=== PATIENT | male | born 1940 | race Hispanic/Latino ===

== ENCOUNTER 2016-09-16 06:51 | Inpatient (IN) | payer MEDICARE ==
--- NOTE | 2016-09-10 11:23 | Anesthesia Consultation ---
Anesthesia Consult and Med Hx - Airway Anesthetic Teeth Evaluation: Caps Mallampati Class: Class II Intubation Access Assessment: Probably Good - Pulmonary Exam CTA: Yes - Cardiac Exam Cardiac Exam: RRR (patient has heart murmur) - Pre-Operative Health Status ASA Pre-Surgery Classification: ASA3 Proposed Anesthetic Plan: Epidural, MAC Nerve Block: adductor (patient has had successful placement of epidural, but may be difficult) - Pulmonary Hx Smoking: No (DIP TOBACCO- STOPPED X 5 YRS) Hx Sleep Apnea: No (DINAH PRE SCREEN LOW RISK) - Cardiovascular System Hx Hypertension: No (high cholesterol) Hx Coronary Artery Disease: (pt has had cabbage; cardiac clearance on chart) Hx Heart Murmur: Yes (CAUSES NO PROBLEMS) - Central Nervous System Hx Neuromuscular Disorder: (R-TKR, R-hip, R-shoulder surgery; 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
--- NOTE | 2016-09-10 11:27 | Anesthesia Consultation ---
Anesthesia Consult and Med Hx - Airway Anesthetic Teeth Evaluation: Caps ROM Head & Neck: Adequate Mental/Hyoid Distance: Adequate Mallampati Class: Class II Intubation Access Assessment: Probably Good - Pulmonary Exam CTA: Yes - Cardiac Exam Cardiac Exam: RRR (patient has murmur;) - Pre-Operative Health Status ASA Pre-Surgery Classification: ASA3 Proposed Anesthetic Plan: Epidural (epidural with adductor block and sedation; patient has spinal stenosis - epidural may be difficult but had sucessful epidural with a preious surgery), MAC Nerve Block: adductor - Pulmonary Hx Smoking: No (DIP TOBACCO- STOPPED X 5 YRS) Hx Sleep Apnea: No (DINAH PRE SCREEN LOW RISK) - Cardiovascular System Hx Hypertension: No Hx Coronary Artery Disease: (CABG in past - cardiac clearance on chart) Hx Heart Murmur: Yes (CAUSES NO PROBLEMS) - Central Nervous System Hx Neuromuscular Disorder: (previous R) - Hematic Hx Anemia: Yes - Other Systems Hx Cancer: Yes (LYMPHOMA WITH CHEMO 2002)
[~2016-09-16 06:51] MED LIST: LACTATED RINGERS 1,000 ML IV SCH; NACL BACTERIOSTATIC INFILTRATI ONE; PEPCID IV NR; VANCOMYCIN/NS 1 GM/250 ML 250 ML IV NR; VERSED IV NR; ZOFRAN IV NR
[2016-09-16] MEDS ORDERED: DILAUDID ONE (07:06)
[2016-09-16] MEDS ORDERED: DIPRIVAN 10 MG/ML IV ONE (07:06)
[2016-09-16] MEDS ORDERED: DECADRON ONE (07:20)
[2016-09-16] MEDS ORDERED: MARCAINE-EPI 0.5%-1:200,000 INFILTRATI ONE ×3 (07:20→09:41)
[2016-09-16 07:25] LABS: Basophils % (Auto) 0.7 % (0.0-1.8); Eosinophils % (Auto) 2.2 % (0.0-4.3); Hematocrit 40.9 % (35.5-45.6); Hemoglobin 13.5 gm/dl (11.8-15.2); Mean Corpuscular HGB Conc 33 % (32-34); Mean Corpuscular Hemoglobin 29 pg (28-32); Mean Corpuscular Volume 88 fl (84-94); Platelet Count 105 K/mm3 (140-440); Red Blood Count 4.65 M/mm3 (3.65-5.03); Red Cell Distribution Width 14.1 % (13.2-15.2); White Blood Count 6.1 K/mm3 (4.5-11.0)
[2016-09-16] MEDS ORDERED: CLONIDINE 1,000 MCG/10 ML VIAL EP ONE (08:30)
[2016-09-16] MEDS ORDERED: NEOSPORIN GU IR ONE (09:02)
[2016-09-16] MEDS ORDERED: NACL 0.9% IR ONE ×2 (09:02)
[2016-09-16] MEDS ORDERED: SODIUM CHLORIDE FLUSH SYRINGE 10 ML IV PRN ×2 (09:03→11:13)
[2016-09-16] MEDS ORDERED: NACL 0.9% IV ONE (09:20)
[2016-09-16] MEDS ORDERED: TRANEXAMIC ACID IV ONE (09:20)
[2016-09-16] MEDS ORDERED: XYLOCAINE MPF 2% ONE ×2 (09:26→11:08)
[2016-09-16] MEDS ORDERED: NACL 0.9% 1000 ML 1,000 ML ONE (09:48)
[2016-09-16] MEDS ORDERED: NEO SYNEPHRINE/NS Syringe(OR USE) IV ONE (10:56)
--- NOTE | 2016-09-16 11:09 | Admit Criteria Form ---
Admission Criteria Documentation: AMBULATORY SURGERY EXCEPTION CRITERIA Ambulatory Surgery Exception Criteria ( Place 'X' for any and all applicable criteria): Surgery or procedure performed on ambulatory basis may require inpatient stay for[A] ANY ONE of the following(1)(2)(3)(4)(5)(6)(7)(8)(9): [X] I. A preoperative situation, condition, or finding that warrants inpatient stay as indicated by ANY ONE of the following: [] a) Inpatient care needed because of severity of a disease or condition rather than the surgery (eg, severe cardiac or respiratory disease, severe infection) (15) (16 ) (17) (18) [] b) Emergent procedure (eg, angioplasty for acute ischemia)(19) [] c) Complex surgical approach or situation as indicated by ANY ONE of the following(3): [] i) Open approach needed instead of usual endoscopic, transcatheter, or other less invasive procedure [] ii) Difficult approach because of previous operation [] iii) Airway monitoring required after open neck procedures(20)(21) [] iv) Large mass requiring unusually extensive dissection [] v) Additional complicating feature requiring inpatient care (eg, drain management)(22(23): [X] d) Major surgery in a pt with high anesthetic risk as indicated by ANY ONE of the following (2)(3)(5)(7)(8): [X] i) ASA risk class III or higher (severe systemic disease impairing function) [D] [] ii) Advanced age (eg, older than 85 years)(14)(24) [] iii) Symptomatic heart failure(25) [] iv) Symptomatic asthma or COPD(8)(21) [] v) Morbid obesity with hemodynamic or respiratory problems(20)( 21)(26)(27) [] vi) Obstructive sleep apnea(20)(21) [] vii) Former premature infants who are younger than 60 weeks [] viii) High risk for severe postoperative abnormalities (eg, severe postoperative hypocalcemia after parathyroidectomy for severe hyperparathyroidism)(27)( 28) [] ix) Unstable angina(25) [] e) Drug-related risk requiring inpatient stay as indicated by ANY ONE of the following(5)(10)(14)(32)(33) [] i) Procedure requires discontinuing drugs or other therapy (eg , antiarrhythmic medication, antiseizure medication), which necessitates inpatient observation or treatment.(18)(31) [] ii) Major surgery and high risk drug use as indicated by ANY ONE of the following: [] 1) Active abuse of cocaine or similar drug [] 2) Monoamine oxidase inhibitor use [] 3) Other drug identified as posing risk [] f) Inadequate outpatient care situation as indicated by ANY ONE of the following(5)(10)(14)(32)(33) [] i) Patient lives remote from medical facility and procedure has urgent complication potential, and temporary nearby residence cannot be arranged [] ii) Patient will have postprocedure incapacitation and inadequate assistance at home, or alternative level of care cannot be arranged. [] iii) Patient will have long general anesthesia or procedure side effect resolution time, and competent person to stay with patient on first postoperative night at home or alternative level of care cannot be arranged. []iv) Other inadequate outpatient situation that cannot be handled by other means [] II. A perioperative event, condition, or finding that warrants inpatient stay as indicated by ANY ONE of the following (1)(2)(3): [] a) Inadequate physiologic recovery: cardiovascular, respiratory, or hemodynamic status not normal or near preoperative baseline(18) [] b) Hemodynamic instability [] c) Patient not alert with near normal or baseline mental status [] d) Temperature not normal or as expected and not appropriate for outpatient treatment of condition [] e) Ambulatory or appropriate activity level status not yet achieved post procedure [E](34)(35)(36) [] f) Operative site not appropriate (eg, unexpected or excessive drainage or bleeding) [] g) Postoperative effects not resolved or adequately managed (eg, significant pain or vomiting not appropriate for outpatient or next level of care)(10)(12) [] h) Complicating features requiring inpatient care as indicated by ANY ONE of the following(37): [] i) Severe complications of procedure (eg, bowel injury, airway compromise, vascular injury,severe hemorrhage) [] ii) Extensive (eg, dissection far beyond usual scope of procedure ) or prolonged (eg, 120 minutes beyond usual) surgery needed requiring inpatient postoperative care [] iii) Conversion to an open or complex procedure that requires inpatient care (eg, open vs laparoscopic cholecystectomy, abdominal vs vaginal hysterectomy)(38) [] iv) Comorbid condition or test result identified during or post procedure that requires inpatient care (7) [] v) Malignant hyperthermia(30) [] vi) Other complicating feature requiring inpatient care(22)(23) Inpatient stay may be needed until ALL of the following are present (1)(2)(3)(4) (5)(6)(10)(14)(33)(40): []a) Physiologic recovery: cardiovascular, respiratory, and hemodynamic status normal or near preoperative baseline []b) Hemodynamic stability []c) Patient alert, with near normal or baseline mental status []d) Temperature appropriate: patient afebrile or temperature appropriate for outpt treatment of condition []e) Activity level appropriate: ambulatory or appropriate activity level post procedure []f) Operative site appropriate as indicated by ALL of the following: []i) Site dry or with expected drainage []ii) Any blood noted is as expected for procedure. []g) Postoperative effects resolved or managed as indicated by ALL of the following: []i) Pain management appropriate for outpatient (or next level of) care(10) []ii) Minimal nausea and vomiting: if present, successfully treated with oral medication(12) []iii) Headache, dizziness, or drowsiness (if present) are mild. []h) Voiding status acceptable as indicated by ANY ONE of the following: []i) Voiding spontaneously []ii) No voiding but instructions given for follow-up in 6 to 8 hours []iii) Urinary catheter in place, and instructions given for follow-up []i) Complicating features requiring inpatient care manageable at a lower level of care(37) []j) Comorbid conditions manageable at a lower level of care(37) The original [employer] content created by [employer] has been revised. The portions of the content which have been revised are identified through the use of italic text or in bold, and [facility] [employer] has neither reviewed nor approved the modified material. All other unmodified content is copyright [employer]. Please see references footnoted in the original [employer] edition 2016 Admission Criteria Met: Yes
[2016-09-16] MEDS ORDERED: AMBIEN PO PRN (11:13)
--- NOTE | 2016-09-16 12:23 | Post Anesthesia Evaluation ---
- Post Anesthesia Evaluation Patient Participated: Yes Airway Patent: Yes Stable Respiratory Function: Yes Nausea/Vomiting: No Temp > 96.8F: Yes Pain Manageable: Yes Adequeate Hydration: Yes Anesthesia Complications: No
[2016-09-16] MEDS: NACL 0.9% 1000 ML 1,000 ML IV SCH (16:15)
[2016-09-16] MEDS: DILAUDID IV PRN ×2 (16:15→22:29)
[2016-09-16] MEDS ORDERED: NON-FORMULARY (Ascorbic Acid [Vitamin C] 1,000 MG) PO SCH (17:00)
[2016-09-16] MEDS ORDERED: ALPHA LIPOIC ACID 600 MG PO SCH (17:00)
[2016-09-16] MEDS ORDERED: SIMVASTATIN PO SCH (17:00)
[2016-09-16] MEDS ORDERED: LACTOBACILLUS COMBINATION NO 8 PO SCH (17:00)
[2016-09-16] MEDS ORDERED: EZETIMIBE PO SCH (17:00)
[2016-09-16] MEDS ORDERED: HALFPRIN EC PO SCH (17:00)
[2016-09-16] MEDS ORDERED: XYLOCAINE TOPICAL 5% TP SCH (17:00)
[2016-09-16] MEDS ORDERED: VANCOMYCIN/NS 1 GM/250 ML 250 ML IV SCH ×2 (18:00→22:30)
--- NOTE | 2016-09-16 20:00 | Consultation ---
History of Present Illness - Reason for Consult Consult date: 09/16/16 medical management Requesting physician: DEB PITTMAN - History of Present Illness Patient had L TKA today.Doing well . No complaints Past History Past Medical History: hypertension, hyperlipidemia Medications and Allergies Allergies Allergy/AdvReac Type Severity Reaction Status Date / Time Penicillins Allergy Rash Verified 09/08/16 17:23 Home Medications Medication Instructions Recorded Confirmed Last Taken Type ALPRAZolam [Xanax TAB] 0.5 mg PO QHS 09/10/16 09/10/16 Unknown History Alpha Lipoic Acid 600 mg PO DAILY 09/10/16 09/16/16 09/14/16 09:00 History Ascorbic Acid [Vitamin C] 1,000 mg PO DAILY 09/10/16 09/16/16 09/14/16 09:00 History Aspirin [Adult Low Dose Aspirin EC] 81 mg PO DAILY 09/10/16 09/16/16 09/09/16 09 :00 History Celecoxib [celeBREX] 200 mg PO QDAY 09/10/16 09/16/16 09/16/16 06:00 History Cod Liver Oil 1 each PO DAILY 09/10/16 09/16/16 09/14/16 09:00 History Cyanocobalamin/Folic Acid [Vitamin 1 tab PO DAILY 09/10/16 09/16/16 09/14/16 09: 00 History A06-Dhesz Acid Tablet] Ezetimibe/Simvastatin (Nf) 1 each PO DAILY 09/10/16 09/16/16 09/15/16 21:00 History [Vytorin 10-40 mg (Nf)] Finasteride [Proscar] 5 mg PO DAILY 09/10/16 09/16/16 09/16/16 06:00 History Ginkgo Biloba 120 mg PO DAILY 09/10/16 09/16/16 09/09/16 06:00 History HYDROcodone/APAP 10-325 [[place] 1 each PO TID 09/10/16 09/16/16 09/15/16 09:00 History 10/325] Lactobacillus Combination No.8 1 each PO DAILY 09/10/16 09/16/16 09/14/16 09:00 History [Adult Probiotic] Lidocaine Topical 5% [Xylocaine 1 dose TP DAILY 09/10/16 09/16/16 09/14/16 09: 00 History Topical 5%] Mv-Mn/Iron/FA/Herbal Cmplx#190 1 each PO DAILY 09/10/16 09/16/16 09/14/16 09:00 History [Vitamin D3 Complete [place]] Niacin [Niaspan ER] 1,000 mg PO QHS 09/10/16 09/10/16 Unknown History [place]-3 Fatty Acids [Fish Oil] 1,000 mg PO DAILY 09/10/16 09/16/16 09/14/16 09: 00 History Omeprazole Magnesium [PriLOSEC Otc] 20 mg PO QDAY 09/10/16 09/16/16 09/15/16 12: 00 History Psyllium 500 mg PO DAILY 09/10/16 09/16/16 09/15/16 09:00 History Pumpkin Seed Extract/Soy Germ [Azo 1,000 mg PO QHS 09/10/16 09/10/16 Unknown History Bladder Control Capsule] Tamsulosin [Flomax] 0.4 mg PO QDAY 09/10/16 09/16/16 09/16/16 06:00 History Vitamin B Complex [B Complex] 1 tab PO DAILY 09/10/16 09/16/16 09/14/16 09:00 History Vitamin E 400 unit PO DAILY 09/10/16 09/10/16 Unknown History Gabapentin [Gabapentin] 300 mg PO BID 09/16/16 09/16/16 09/16/16 06:00 History Active Meds: Active Medications Alprazolam (Xanax) 0.5 mg PO QHS [facility] Ascorbic Acid (Vitamin C) 1,000 mg PO DAILY [facility] Aspirin (Aspirin) 325 mg PO QDAY [facility] Celecoxib (Celebrex) 200 mg PO QDAY [facility] Ezetimibe (Zetia) 10 mg PO QDAY [facility] Famotidine (Pepcid) 20 mg IV PREOP NR Stop: 09/16/16 23:59 Last Admin: 09/16/16 07:30 Dose: 20 mg Finasteride (Proscar) 5 mg PO DAILY [facility] Gabapentin (Neurontin) 300 mg PO BID [facility] Hydromorphone HCl (Dilaudid) 0.5 mg IV Q3H PRN PRN Reason: Pain , Severe (7-10) Last Admin: 09/16/16 16:15 Dose: 0.5 mg Lactated Ringer's (Lactated Ringers) 1,000 mls @ 100 mls/hr IV DIRECT ROBERTO Stop: 09/16/16 23:59 Last Admin: 09/16/16 07:29 Dose: 100 mls/hr Vancomycin HCl (Vancomycin/Ns 1 Gm/250 Ml) 250 mls @ 167 mls/hr IV PREOP NR PRN Reason: Protocol Stop: 09/16/16 23:59 Last Admin: 09/16/16 08:55 Dose: 167 mls/hr Sodium Chloride (Nacl 0.9% 1000 Ml) 1,000 mls @ 125 mls/hr IV DIRECT ROBERTO Last Admin: 09/16/16 16:15 Dose: 125 mls/hr Ketorolac Tromethamine (Toradol) 30 mg IV Q6H PRN PRN Reason: Pain, Moderate (4-6) Stop: 09/21/16 11:12 Lactobacillus Acidophilus (Lactinex) 1 each PO QDAY ROBERTO Lidocaine (Lidoderm 5%) 1 each TD QDAY ROBERTO Midazolam HCl (Versed) 2 mg IV PREOP NR Stop: 09/16/16 23:59 Last Admin: 09/16/16 07:45 Dose: 2 mg Ondansetron HCl (Zofran) 4 mg IV PREOP NR Stop: 09/16/16 23:00 Last Admin: 09/16/16 07:32 Dose: 4 mg Pantoprazole Sodium (Protonix) 20 mg PO QDAY ROBERTO Simvastatin (Zocor) 40 mg PO QHS ROBERTO Sodium Chloride (Sodium Chloride Flush Syringe 10 Ml) 10 ml IV PRN PRN PRN Reason: LINE FLUSH Sodium Chloride (Sodium Chloride Flush Syringe 10 Ml) 10 ml IV PRN PRN PRN Reason: LINE FLUSH Tamsulosin HCl (Flomax) 0.4 mg PO QDAY ROBERTO Zolpidem Tartrate (Ambien) 5 mg PO QHS PRN PRN Reason: Sleep Review of Systems All systems: negative Exam - Constitutional Vitals: Temp Pulse Resp BP Pulse Ox 98.6 F 52 L 18 110/62 99 09/16/16 16:00 09/16/16 16:00 09/16/16 16:00 09/16/16 16:00 09/16/16 16:00 General appearance: Present: no acute distress, well-nourished - EENT Eyes: Present: PERRL ENT: hearing intact, clear oral mucosa - Neck Neck: Present: supple, normal ROM - Respiratory Respiratory effort: normal Respiratory: bilateral: CTA - Cardiovascular Heart Sounds: Present: S1 & S2. Absent: rub, click - Extremities Extremities: pulses symmetrical, No edema Peripheral Pulses: within normal limits - Abdominal General gastrointestinal: Present: soft, non-tender, non-distended, normal bowel sounds Male genitourinary: Present: normal - Integumentary Integumentary: Present: clear, warm, dry - Musculoskeletal Musculoskeletal: gait normal, strength equal bilaterally - Psychiatric Psychiatric: appropriate mood/affect, intact judgment & insight - Neurologic Neurologic: CNII-XII intact, moves all extremities Results - Labs CBC & Chem 7: 09/16/16 07:10 09/16/16 07:10 Labs: Abnormal lab results 09/16/16 Range/Units 07:10 Plt Count 105 L (140-440) K/mm3 [place] % (Auto) 11.1 H (0.0-7.3) % Assessment and Plan - Patient Problems (1) GERD (gastroesophageal reflux disease) Current Visit: Yes Status: Acute Qualifiers: Esophagitis presence: without esophagitis Qualified Code(s): K21.9 - Gastro -esophageal reflux disease without esophagitis Plan to address problem: Cont omeprazole (2) HLD (hyperlipidemia) Current Visit: Yes Status: Chronic Plan to address problem: Cont niacin and vytorin (3) BPH (benign prostatic hyperplasia) Current Visit: Yes Status: Chronic Qualifiers: Prostatic enlargement morphology: non-nodular Lower urinary tract symptom presence: symptoms present Qualified Code(s): N40.1 - Benign prostatic hyperplasia with lower urinary tract symptoms Plan to address problem: Cont Flomax and finasteride (4) Hx of total knee arthroplasty Current Visit: Yes Status: Acute Qualifiers: Laterality: left Qualified Code(s): Z96.652 - Presence of left artificial knee joint Plan to address problem: PT to continue (5) DVT prophylaxis Current Visit: Yes Status: Acute Plan to address problem: on Asa 325 twice a day (6) Pain management Current Visit: Yes Status: Acute Plan to address problem: Dilaudid prn
[2016-09-16] MEDS ORDERED: FLOMAX PO SCH (22:00)
[2016-09-16] MEDS: FLOMAX PO SCH (22:31)
[2016-09-16] MEDS: ZOCOR PO SCH (22:32)
[2016-09-16] MEDS: NEURONTIN PO SCH (22:32)
[2016-09-16] MEDS: XANAX PO SCH (22:32)
--- NOTE | 2016-09-16 23:34 | Operative Report ---
PREOPERATIVE DIAGNOSIS: Left knee with severe degenerative joint disease. 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 PROCEDURE PERFORMED: Left total knee replacement utilizing [employer] with: 1. Size 5 noncemented femur. 2. Size 5 noncemented tibia. 3. 9 mm polyethylene insert. 4. Non-resurface patella. SURGEON: Oumar Allen M.D. [employer] PRESS OPERATOR: Brian Driver CSA. ANESTHESIA: Spinal epidural plus adductor block. ESTIMATED BLOOD LOSS: Minimal. COMPLICATIONS: None. DESCRIPTION OF PROCEDURE: [place] patient underwent successful anesthesia. Tranexamic acid and vancomycin were pre-administered. Lower extremity was meticulously prepped and draped in the usual fashion. Standard tourniquet was inflated. Standard midline incision utilizing median trivector arthrotomy was carried out. The retropatellar surface was relatively well preserved. Marked degeneration and collapse noted of the tibiofemoral compartments. Standard drill hole made in the distal femur with sequential suctioning and standard cuts made with a 6-degree valgus alignment, 8 mm distal femoral resection. Excellent cuts made on the femur, tibia exposed. The intramedullary rossy introduced and with again sequential suctioning, and 0 mm were taken of the low side medially. Excellent cuts made on the tibia, appropriate gaps balanced. Full range of motion and excellent stability with the size implants noted. Excellent quality bone. The wound was thoroughly irrigated. The implants placed after preparation. He had full range of motion, stable excellent tracking and excellent stability. Once again, the wound was irrigated. Arthrotomy reapproximated with Ethibond sutures followed by 0 and 2-0 Vicryl, subcutaneous tissue and Monocryl for the skin and sterile [place] dressing applied, taken to the recovery room in satisfactory condition having tolerated the procedure well. Tourniquet released prior to wound closure. No significant bleeding encountered. JOB# [id number] NATALIE/ERIN
[2016-09-17] MEDS ORDERED: COD LIVER OIL PO SCH (10:00)
[2016-09-17] MEDS ORDERED: FOLIC ACID PO SCH (10:00)
[2016-09-17] MEDS: LACTINEX PO SCH (10:00)
[2016-09-17] MEDS ORDERED: CYANOCOBALAMIN PO SCH (10:00)
[2016-09-17] MEDS: VITAMIN C PO SCH (10:00)
[2016-09-17] MEDS ORDERED: NON-FORMULARY (Omeprazole Magnesium [Prilosec Otc] 20 MG) PO SCH (10:00)
[2016-09-17] MEDS: LIDODERM 5% TD SCH (10:00)
[2016-09-17] MEDS: ZETIA PO SCH (10:00)
[2016-09-17] MEDS: PROTONIX PO SCH (10:00)
[2016-09-17] MEDS: PROSCAR PO SCH (10:00)
[2016-09-17] MEDS: NEURONTIN PO SCH ×2 (10:00→22:57)
[2016-09-17] MEDS: TORADOL IV PRN ×2 (11:20→22:58)
[2016-09-17] MEDS: ASPIRIN PO SCH (11:27)
--- NOTE | 2016-09-17 13:40 | Progress Note ---
Subjective Date of service: 09/17/16 Interval history: 1st POD after left knee arthroplasty Patient is in the bed, relatively comfortable. Pain is well controlled with pain meds. Ambulated with some help, had physical therapy. No anesthesia complications Objective - Constitutional Vitals: Vital Signs - 12hr 09/17/16 09/17/16 09/17/16 05:15 08:00 12:14 Temperature 97.8 F 98.7 F 98.5 F Pulse Rate [ 76 52 L 54 L Left] Respiratory 20 18 18 Rate Blood Pressure 80/38 80/41 90/44 [Left Arm] O2 Sat by Pulse 98 98 Oximetry - Labs CBC & Chem 7: 09/16/16 07:10 09/16/16 07:10
[2016-09-17] MEDS: NACL 0.9% 1000 ML 1,000 ML IV SCH (15:33)
--- NOTE | 2016-09-17 16:27 | Progress Note ---
Subjective Date of service: 09/17/16 Interval history: VSS/BP sl low NVI Dssg dry Calf supple Comfortable Cont PT/Med mgmt Notified Dr. Sanchez Objective Vital signs: Vital Signs - 12hr 09/17/16 09/17/16 09/17/16 05:15 08:00 10:00 Temperature 97.8 F 98.7 F Pulse Rate [ 76 52 L Left] Respiratory 20 18 Rate Blood Pressure 80/38 80/41 [Left Arm] O2 Sat by Pulse 98 98 98 Oximetry 09/17/16 09/17/16 12:14 15:45 Temperature 98.5 F 98.2 F Pulse Rate [ 54 L 44 L Left] Respiratory 18 18 Rate Blood Pressure 90/44 88/50 [Left Arm] O2 Sat by Pulse Oximetry - Labs CBC & BMP: 09/16/16 07:10 09/16/16 07:10
[2016-09-17] MEDS: ZOCOR PO SCH (22:55)
[2016-09-17] MEDS: XANAX PO SCH (22:56)
[2016-09-17] MEDS: FLOMAX PO SCH (22:56)
[2016-09-18] MEDS: NACL 0.9% 1000 ML 1,000 ML IV SCH (01:32)
[2016-09-18 08:35] VITALS: BP 93/45
[2016-09-18] MEDS: LACTINEX PO SCH (10:00)
[2016-09-18] MEDS: ZETIA PO SCH (10:00)
[2016-09-18] MEDS: VITAMIN C PO SCH (10:00)
[2016-09-18] MEDS: PROSCAR PO SCH (10:00)
[2016-09-18] MEDS: NEURONTIN PO SCH (10:00)
[2016-09-18] MEDS: LIDODERM 5% TD SCH (10:00)
[2016-09-18] MEDS: ASPIRIN PO SCH (10:00)
[2016-09-18] MEDS: PROTONIX PO SCH (10:00)
[2016-09-18] MEDS ORDERED: PERCOCET 5/325 PO PRN (10:45)
--- NOTE | 2016-09-18 13:20 | Progress Note ---
Assessment and Plan Assessment and plan: (1) GERD (gastroesophageal reflux disease) Current Visit: Yes Status: Acute Qualifiers: Esophagitis presence: without esophagitis Qualified Code(s): K21.9 - Gastro -esophageal reflux disease without esophagitis Plan to address problem: Cont omeprazole (2) HLD (hyperlipidemia) Current Visit: Yes Status: Chronic Plan to address problem: Cont niacin and vytorin (3) BPH (benign prostatic hyperplasia) Current Visit: Yes Status: Chronic Qualifiers: Prostatic enlargement morphology: non-nodular Lower urinary tract symptom presence: symptoms present Qualified Code(s): N40.1 - Benign prostatic hyperplasia with lower urinary tract symptoms Plan to address problem: Cont Flomax and finasteride (4) Hx of total knee arthroplasty Current Visit: Yes Status: Acute Qualifiers: Laterality: left Qualified Code(s): Z96.652 - Presence of left artificial knee joint Plan to address problem: PT to continue (5) DVT prophylaxis Current Visit: Yes Status: Acute Plan to address problem: on Asa 325 twice a day (6) Pain management Current Visit: Yes Status: Acute Plan to address problem: Dilaudid prn History Interval history: Patient seen and examined. Medical records and medication list reviewed. No acute event overnight noted by the RN. Patient denies any chest pain or difficulty breathing. Patient is tolerating diet. Discussed plan of care at bedside with patient. Hospitalist Physical - Physical exam Narrative exam: GENERAL: well-developed and well-nourished lying on bed appeared to be in no discomfort. HEENT: Normocephalic. Atraumatic. No conjunctival congestion or icterus. Patient has moist mucous membranes. NECK: Supple. Trachea midline. CHEST/LUNGS: Clear to auscultated bilaterally, breathing nonlabored. No wheezes crackles or rhonchi. HEART/CARDIOVASCULAR: Regular in rate and rhythm. S1 and S2 positive. ABDOMEN: Abdomen is soft, nontender. Patient has normal bowel sounds. SKIN: There is no rash. Warm and dry. NEURO: No focal motor deficit. Follows command. MUSCULOSKELETAL: No joint effusion or tenderness. EXTRIMITY: No edema, no cyanosis or clubbing. PSYCH: Cooperative. - Constitutional Vitals: Temp Pulse Resp BP Pulse Ox 97.9 F 45 L 16 93/45 98 09/18/16 08:00 09/18/16 08:00 09/18/16 08:00 09/18/16 08:00 09/18/16 08:00 General appearance: Present: no acute distress, well-nourished Results - Labs CBC & Chem 7: 09/16/16 07:10 09/16/16 07:10 Labs: Laboratory Last Values WBC 6.1 K/mm3 (4.5-11.0) 09/16/16 07:10 RBC 4.65 M/mm3 (3.65-5.03) 09/16/16 07:10 Hgb 13.5 gm/dl (11.8-15.2) 09/16/16 07:10 Hct 40.9 % (35.5-45.6) 09/16/16 07:10 MCV 88 fl (84-94) 09/16/16 07:10 MCH 29 pg (28-32) 09/16/16 07:10 MCHC 33 % (32-34) 09/16/16 07:10 RDW 14.1 % (13.2-15.2) 09/16/16 07:10 Plt Count 105 K/mm3 (140-440) L 09/16/16 07:10 Lymph % (Auto) 27.6 % (13.4-35.0) 09/16/16 07:10 [place] % (Auto) 11.1 % (0.0-7.3) H 09/16/16 07:10 Eos % (Auto) 2.2 % (0.0-4.3) 09/16/16 07:10 Baso % (Auto) 0.7 % (0.0-1.8) 09/16/16 07:10 Lymph # 1.7 K/mm3 (1.2-5.4) 09/16/16 07:10 [place] # 0.7 K/mm3 (0.0-0.8) 09/16/16 07:10 Eos # 0.1 K/mm3 (0.0-0.4) 09/16/16 07:10 Baso # 0.0 K/mm3 (0.0-0.1) 09/16/16 07:10 Seg Neutrophils % 58.4 % (40.0-70.0) 09/16/16 07:10 Seg Neutrophils # 3.6 K/mm3 (1.8-7.7) 09/16/16 07:10 Potassium 4.4 mmol/L (3.6-5.0) 09/16/16 07:10
--- NOTE | 2016-09-18 14:13 | Progress Note ---
Assessment and Plan - Patient Problems (1) GERD (gastroesophageal reflux disease) Current Visit: Yes Status: Acute Qualifiers: Esophagitis presence: without esophagitis Qualified Code(s): K21.9 - Gastro -esophageal reflux disease without esophagitis Plan to address problem: Cont omeprazole (2) HLD (hyperlipidemia) Current Visit: Yes Status: Chronic Plan to address problem: Cont niacin and vytorin (3) BPH (benign prostatic hyperplasia) Current Visit: Yes Status: Chronic Qualifiers: Prostatic enlargement morphology: non-nodular Lower urinary tract symptom presence: symptoms present Qualified Code(s): N40.1 - Benign prostatic hyperplasia with lower urinary tract symptoms Plan to address problem: Cont Flomax and finasteride (4) Hx of total knee arthroplasty Current Visit: Yes Status: Acute Qualifiers: Laterality: left Qualified Code(s): Z96.652 - Presence of left artificial knee joint Plan to address problem: PT to continue (5) DVT prophylaxis Current Visit: Yes Status: Acute Plan to address problem: on Asa 325 twice a day (6) Pain management Current Visit: Yes Status: Acute Plan to address problem: Dilaudid prn Subjective Date of service: 09/17/16 Principal diagnosis: S/p TKA Interval history: Late entry Doing well. Discharge held b/c of low BP Objective - Constitutional Vitals: Vital Signs - 12hr 09/18/16 09/18/16 06:22 08:00 Temperature 97.7 F 97.9 F Pulse Rate [ 42 L 45 L Left] Respiratory 20 16 Rate Blood Pressure 100/54 93/45 [Left Arm] O2 Sat by Pulse 98 Oximetry General appearance: Present: no acute distress, well-nourished - EENT Eyes: PERRL, EOM intact ENT: hearing intact, clear oral mucosa Ears: bilateral: normal - Neck Neck: supple, normal ROM - Respiratory Respiratory effort: normal Respiratory: bilateral: CTA - Breasts Breasts: normal - Cardiovascular Rhythm: regular Heart Sounds: Present: S1 & S2. Absent: gallop, rub Extremities: pulses intact, No edema, normal color, Full ROM - Gastrointestinal General gastrointestinal: Present: soft, non-tender, non-distended, normal bowel sounds - Genitourinary Male genitourinary: normal - Integumentary Integumentary: clear, warm, dry - Musculoskeletal Musculoskeletal: 1, strength equal bilaterally - Neurologic Neurologic: moves all extremities - Psychiatric Psychiatric: memory intact, appropriate mood/affect, intact judgment & insight - Labs CBC & Chem 7: 09/16/16 07:10 09/16/16 07:10
--- NOTE | 2016-09-18 14:16 | Discharge Summary ---
Providers - Providers Date of Admission: 09/16/16 06:51 Date of discharge: 09/18/16 Attending physician: JEFFREY HOLMAN 09/16/16 11:13 Consult to Case Management [CONS] Routine Services Needed at Discharge: Home Health Services Notified:: LAUNDRY AGENT Consult to Physician [CONS] Routine Consulting Provider: CHANTE TILLEY Reason For Exam: primary care Place consult to:: DR. TILLEY Notified:: DR. TILLEY Was contact made?: Yes If yes, spoke with:: DR. TILLEY Time called:: 14:05 Comment:: COMPLETED - TONEY 09/16/16 11:21 Physical Therapy Evaluation and Treat [CONS] Routine Comment: avoid flexion, add, int rotation of operative hip Reason For Exam: total knee Primary care physician: YOANNA OROURKE Hospitalization Procedures: S/p L TKA -did well post op Hospital course: Had low BP for few hours-corrected by IV fluids. Pain tolerable . Disposition: DC/TX HOME UNDER HOME HEALTH - Discharge Diagnoses (1) GERD (gastroesophageal reflux disease) Status: Acute Qualifiers: Esophagitis presence: without esophagitis Qualified Code(s): K21.9 - Gastro -esophageal reflux disease without esophagitis (2) HLD (hyperlipidemia) Status: Chronic (3) BPH (benign prostatic hyperplasia) Status: Chronic Qualifiers: Prostatic enlargement morphology: non-nodular Lower urinary tract symptom presence: symptoms present Qualified Code(s): N40.1 - Benign prostatic hyperplasia with lower urinary tract symptoms (4) Hx of total knee arthroplasty Status: Acute Qualifiers: Laterality: left Qualified Code(s): Z96.652 - Presence of left artificial knee joint (5) DVT prophylaxis Status: Acute (6) Pain management Status: Acute Core Measure Documentation - Palliative Care Palliative Care/ Comfort Measures: Not Applicable - Core Measures Any of the following diagnoses?: none Exam - Constitutional Vitals: Temp Pulse Resp BP Pulse Ox 97.9 F 45 L 16 93/45 98 09/18/16 08:00 09/18/16 08:00 09/18/16 08:00 09/18/16 08:00 09/18/16 08:00 General appearance: Present: no acute distress, well-nourished - EENT Eyes: Present: PERRL ENT: hearing intact, clear oral mucosa - Neck Neck: Present: supple, normal ROM - Respiratory Respiratory effort: normal Respiratory: bilateral: CTA - Cardiovascular Heart Sounds: Present: S1 & S2. Absent: rub, click - Extremities Extremities: pulses symmetrical, No edema Peripheral Pulses: within normal limits - Abdominal General gastrointestinal: Present: soft, non-tender, non-distended, normal bowel sounds Male genitourinary: Present: normal - Integumentary Integumentary: Present: clear, warm, dry - Musculoskeletal Musculoskeletal: gait normal, strength equal bilaterally - Psychiatric Psychiatric: appropriate mood/affect, intact judgment & insight - Neurologic Neurologic: CNII-XII intact, moves all extremities Plan Weight Bearing Status: Weight Bear as Tolerated Diet: low fat, low cholesterol, low salt Wound: keep clean and dry, remove dressing (When Home health comes)
[2016-09-18 14:40] LABS: Basophils % (Auto) 0.4 % (0.0-1.8); Eosinophils % (Auto) 1.6 % (0.0-4.3); Hemoglobin 11.1 gm/dl (11.8-15.2); Mean Corpuscular HGB Conc 34 % (32-34); Mean Corpuscular Hemoglobin 29 pg (28-32); Mean Corpuscular Volume 88 fl (84-94); Red Blood Count 3.76 M/mm3 (3.65-5.03); Red Cell Distribution Width 14.5 % (13.2-15.2); White Blood Count 9.4 K/mm3 (4.5-11.0)
[2016-09-18 14:55] LABS: BUN/Creatinine Ratio 18.33; Blood Urea Nitrogen 11 mg/dL (9-20); Calcium 9.2 mg/dL (8.4-10.2); Carbon Dioxide 26 mmol/L (22-30); Chloride 104.9 mmol/L (98-107); Glucose 113 mg/dL (75-100); Sodium 140 mmol/L (137-145)
[2016-09-18 15:10] LABS: Anion Gap 13 mmol/L
[2016-09-18 15:25] LABS: Platelet Count 81 K/mm3 (140-440)
== END 2016-09-18 16:04 | disposition home health service (06) | DRG 470 ==
LOC: 3A 06:51 → 2B-SURG 12:21
PROVIDERS: ADMIT Orthopaedic Surgery; ATTEND Internal Medicine
PROC: 0SRD0JZ Replacement of Left Knee Joint with Synthetic Substitute, Open Approach (ICD-10-PCS; principal; 2016-09-17)
DX: M17.12 Unilateral primary osteoarthritis, left knee (principal); K21.9 Gastro-esophageal reflux disease without esophagitis; I25.10 Atherosclerotic heart disease of native coronary artery without angina pectoris; G89.29 Other chronic pain; G62.9 Polyneuropathy, unspecified; N40.1 Benign prostatic hyperplasia with lower urinary tract symptoms; E78.5 Hyperlipidemia, unspecified; D64.9 Anemia, unspecified; Z88.0 Allergy status to penicillin; Z95.1 Presence of aortocoronary bypass graft; Z92.21 Personal history of antineoplastic chemotherapy; Z85.72 Personal history of non-Hodgkin lymphomas; Z79.82 Long term (current) use of aspirin; Z96.641 Presence of right artificial hip joint
CPT/HCPCS: 36415; 62324; 64450; 80048; 84132; 85025; 88305; 94760; A4217; C1776; G8978-GP; G8979-GP; J0735; J1100; J1170; J1885; J2250; J2370; J2405; J2704; J3370; J7030; J7120

== ENCOUNTER 2016-12-29 13:23 | Outpatient (CLI) | payer MEDICARE ==
--- NOTE | 2016-12-30 10:16 | Magnetic Resonance Report ---
MRI BRAIN WITHOUT CONTRAST INDICATION: Loss of balance. History of cancer. COMPARISON: 08/16/2015 FINDINGS: Noncontrast multiplanar and multisequence MRI of the brain again demonstrates an approximately 1.3 cm right caudate head cavernous malformation with popcorn-like heterogeneous central signal and stable hypointense hemosiderin ring as on axial series 7, image 17. An adjacent 4 mm right subinsular lacunar infarct also again seen on the same image. No acute infarct, hemorrhage, mass effect or midline shift. Normal ventricles and stable, age-appropriate, mildly enlarged sulci. Normal major intracranial vascular flow voids. Normal posterior fossa with symmetric seventh and eighth nerve complexes. Preserved basilar cisterns. Few small pontine lacunar infarcts again noted. Mild rightward nasal septal deviation and approximately 3 mm rightward nasal septal spur. Mild ethmoid sinusitis. Clear remainder imaged paranasal sinuses and mastoid air cells. Bilateral cataract surgery. Normal midline structures without evidence of Chiari malformation. CONCLUSION: No acute intracranial MRI abnormality with few stable findings, including benign right caudate cavernous hemangioma, amongst others, as described. Thank you for the opportunity to participate in this patient's care.
== END 2016-12-29 13:24 | disposition home or self-care (01) ==
LOC: SPVIMAG 13:23
PROVIDERS: ATTEND Psychiatry & Neurology Neurology
DX: R26.89 Other abnormalities of gait and mobility (principal); I72.9 Aneurysm of unspecified site; J34.2 Deviated nasal septum; J32.2 Chronic ethmoidal sinusitis; Z98.41 Cataract extraction status, right eye; Z85.9 Personal history of malignant neoplasm, unspecified; Z98.42 Cataract extraction status, left eye
CPT/HCPCS: 70551

== ENCOUNTER 2017-01-26 08:23 | Outpatient (CLI) | payer MEDICARE ==
--- NOTE | 2017-01-26 13:15 | Cat Scan Report ---
CT NECK WITHOUT AND WITH CONTRAST: 01/26/17 08:23:00 CLINICAL: Globus sensation. History of non-Hodgkin's lymphoma. COMPARISON: 09/10/10 TECHNIQUE: Volumetric acquisition and 1.25 mm axial scan reconstructions without contrast and after the uneventful intravenous injection of 100-cc Omnipaque 350. Consent was obtained prior to the administration of the IV contrast. Sagittal and coronal reformats were performed. FINDINGS: A 4 mm cyst as developed at the root of the tongue on the left. Otherwise normal mucosal structures of the nasopharynx, oropharynx, hypopharynx and larynx. No lymphadenopathy of the neck. Normal salivary glands. The parapharyngeal spaces are normal. A previously identified left thyroid nodule has increased in size and now measures 2.5 x 1.9 x 2.6 cm compared to 1.1 x 0.8 cm on the last exam. The nodule is hypodense with a well-defined wall and a 5 mm mural nodule at the inferior wall. The nodule measures 44 Hounsfield units precontrast and 46 Hounsfield units post contrast. The mural nodule measures 92 Hounsfield units precontrast and 117 Hounsfield units post contrast. The left thyroid lobe is enlarged by the presence of the single nodule in the right lobe is small with no nodule. Vascular structures are normal. Degenerative changes in the spine and moderately large anterior osteophytes from C3-4 through C5-6. The largest osteophyte is at C4-5. The upper lung mccracken are clear. IMPRESSION: 1. A 4 mm probably benign cyst at the root of the tongue on the left. 2. 2.5 cm cystic left thyroid nodule which has enlarged since the previous exam. It has a partially calcified mural nodule in the wall. Recommend further evaluation with thyroid ultrasound. 3. Degenerative cervical spondylosis with large anterior osteophytes which may impair swallowing or produce an unatural sensation with the swallowing of a food bolus.
== END 2017-01-26 08:24 | disposition home or self-care (01) ==
LOC: SPVIMAG 08:23
PROVIDERS: ATTEND Otolaryngology Sleep Medicine
DX: E04.1 Nontoxic single thyroid nodule (principal); F45.8 Other somatoform disorders; K14.8 Other diseases of tongue; E04.9 Nontoxic goiter, unspecified; M47.812 Spondylosis without myelopathy or radiculopathy, cervical region; M25.78 Osteophyte, vertebrae; Z85.72 Personal history of non-Hodgkin lymphomas
CPT/HCPCS: 70492; 82962; Q9967

== ENCOUNTER 2018-06-28 10:54 | Outpatient (CLI) | payer MEDICARE ==
--- NOTE | 2018-06-28 14:08 | Cat Scan Report ---
CT LUMBAR SPINE WITHOUT CONTRAST History: Radiculopathy. Technique: Helical CT with sagittal and coronal reformatted images. Findings: The coronal images demonstrates severe levocurvature of the lower lumbar spine from the level of L2 to the superior sacrum estimated at 46 degrees. There is 1 cm left lateral subluxation of L4 with respect to L3 and L5. No evidence for compression deformity or bone lesion. Severe disc space narrowing, marginal spurring and vacuum phenomenon is identified at all levels throughout the lumbar spine. Mild to moderate facet arthropathy is also identified at all levels. Although intraspinal contents is limited on noncontrast CT, there is suggestion of moderate to severe central canal stenosis at L3-4 and L4-5. Moderate right neural foraminal stenosis is also suspected at L3-4 and L4-5 estimated at 50-75%. The visualized sacrum and SI joints are intact. IMPRESSION: Moderate to severe levoscoliosis with severe multilevel degenerative disc disease as outlined above. Central canal stenosis and right neural foraminal narrowing is suspected at L3-4 and L4-5. If further evaluation is needed, MRI lumbar spine would provide the most information.
== END 2018-06-28 10:55 | disposition home or self-care (01) ==
LOC: CT 10:54
PROVIDERS: ATTEND Physical Medicine & Rehabilitation Pain Medicine
DX: M41.86 Other forms of scoliosis, lumbar region (principal); M51.36 Other intervertebral disc degeneration, lumbar region; K21.9 Gastro-esophageal reflux disease without esophagitis; E78.5 Hyperlipidemia, unspecified; E78.00 Pure hypercholesterolemia, unspecified; I25.10 Atherosclerotic heart disease of native coronary artery without angina pectoris
CPT/HCPCS: 72131

== ENCOUNTER 2019-09-18 07:31 | Outpatient (CLI) | payer MEDICARE ==
--- NOTE | 2019-09-18 08:15 | Cat Scan Report ---
CT HEAD WITHOUT CONTRAST INDICATION / CLINICAL INFORMATION: STROKE I63.9. TECHNIQUE: Axial imaging performed from the skull apex through the skull base without the use of cont rast. Sagittal and coronal reformatted images. All CT scans at this location are performed using CT dose reduction for ALARA by means of automated exposure control. COMPARISON: None available. FINDINGS: CEREBRAL PARENCHYMA: No significant abnormality. No acute territorial infarct. There is mild cortical atrophy which appears appropriate for this patient's age. HEMORRHAGE: None. EXTRA-AXIAL SPACES: Normal in size and morphology for the patient's age. VENTRICULAR SYSTEM: Normal in size and morphology for the patient's age. MIDLINE SHIFT OR HERNIATION: None. CEREBELLUM / BRAINSTEM: No significant abnormality. CALVARIUM: No significant abnormality. ORBITS: Normal as visualized. PARANASAL SINUSES / MASTOID AIR CELLS: Normal as visualized. SOFT TISSUES of HEAD: No significant abnormality. ADDITIONAL FINDINGS: None. IMPRESSION: No acute intracranial abnormality. Normal CT brain for age. Mild diffuse atrophy. Signer Name: Almas Belcher Jr, MD Signed: 09/18/2019 8:11 AM Workstation Name: [id number]
== END 2019-09-18 07:32 | disposition home or self-care (01) ==
LOC: CT 07:31
PROVIDERS: ATTEND Psychiatry & Neurology Neurology
DX: I63.9 Cerebral infarction, unspecified (principal)
CPT/HCPCS: 70450

== ENCOUNTER 2020-08-28 09:46 | Outpatient (CLI) | payer MEDICARE ==
--- NOTE | 2020-08-28 12:00 | Magnetic Resonance Report ---
MRI BRAIN WITHOUT CONTRAST INDICATION / CLINICAL INFORMATION: Headaches. TECHNIQUE: Multiplanar, multisequence MR images of the brain were obtained. COMPARISON: Head CT 09/18/2019 and MRI brain 12/29/2016 FINDINGS: BRAIN / INTRACRANIAL CONTENTS: A 14 mm diameter cavernous hemangioma is identified in the right gangliocapsular region in the region of the anterior limb internal capsule and head of caudate nucleus. This is unchanged. There is little in the way of age-related involutional changes. Ventricular system and cortical sulci are normal in size given the patient's age of 79 years. There is little in the way of microvascular ischemic change in this 79-year-old individual. There is no mass effect. No evidence of intracranial hemorrhage or extra-axial fluid collection is seen. There is no indication of remote cortical infarct ion. Diffusion weighted scans are negative. There is no indication of recent ischemic injury. A small focus of cerebrospinal fluid signal intensity is seen in the region of the external capsule on the r ight. This may represent a dilated perivascular space or may represent the sequelae of remote small d eep infarction in this location. This finding is stable since 12/29/2016. A small linear focus of incr eased signal intensity (T1 shortening) is noted along the medial aspect of the left parietal lobe. Th is could represent an artifact or could be a manifestation of the developmental venous anomaly. I do not identify comparable finding on previous study. Consider follow-up with MRI brain with intravenous contrast. The brainstem and cerebellum have an unremarkable appearance. CRANIOCERVICAL JUNCTION: No abnormalities are identified at the craniocervical junction. VASCULAR FLOW-VOIDS: Normal flow-voids are present within the major intracranial vessels. ORBITS: The orbits have an unremarkable appearance. SINUSES / MASTOIDS: There is no indication of inflammatory disease in the paranasal sinuses or mastoi d air cells. Following administration of intravenous contrast material enhancement of normal vascular structures i s demonstrated. No areas of abnormal contrast enhancement are identified. IMPRESSION: 1. 14 mm diameter cavernous hemangioma in the right gangliocapsular region is unchanged compared to p revious studies dating back through 12/29/2016. 2. Linear area of T1 shortening along the medial aspect of the left parietal lobe as described above. Consider MRI brain with contrast for further evaluation. Signer Name: Steve Murillo MD Signed: 08/28/2020 11:56 AM Workstation Name: [id number]
== END 2020-08-28 09:47 | disposition home or self-care (01) ==
LOC: MRI 09:46
DX: D18.02 Hemangioma of intracranial structures (principal); D32.9 Benign neoplasm of meninges, unspecified
CPT/HCPCS: 70551

== ENCOUNTER 2021-08-22 09:50 | Outpatient (CLI) | payer MEDICARE ==
--- NOTE | 2021-08-22 13:20 | Magnetic Resonance Report ---
MRI BRAIN 08/22/2021 INDICATION / CLINICAL INFORMATION: DIZZINESS AND GIDDINESS R42/ D18.00. TECHNIQUE: Multiplanar, multisequence MR images of the brain were obtained. COMPARISON: MRI brain 08/28/2020 FINDINGS: BRAIN / INTRACRANIAL CONTENTS: Unenhanced MR images of the brain were obtained and compared to the pr ior exam from 08/28/2020. There has been no change. Again seen is the cavernoma in the region of the right caudate head, unchanged in appearance. There i s no evidence of superimposed hemorrhage or abnormality. There is no evidence of acute ischemic injury or superimposed hemorrhage. There is no evidence of mas s. There are no abnormal extra-axial fluid collections. On the prior exam, there was a linear area of increased T1 weighted signal in the medial left parieta l lobe. This is not visible on the current study, and presumably represent artifact on the prior stud y. Ventricles and sulci are normal in size and shape for a patient of this age. EXTRACRANIAL: Unremarkable CRANIOCERVICAL JUNCTION: No significant abnormality. VASCULAR FLOW-VOIDS: No significant abnormality. IMPRESSION: No acute abnormality. Stable right basal ganglia cavernoma. Signer Name: Dalton Giang MD Signed: 08/22/2021 1:15 PM Workstation Name: [id number]
== END 2021-08-22 09:51 | disposition home or self-care (01) ==
LOC: MRI 09:50 → SPVIMAG 09:50
PROVIDERS: ATTEND Psychiatry & Neurology Neurology
DX: R42 Dizziness and giddiness (principal); D18.00 Hemangioma unspecified site
CPT/HCPCS: 70551